=== PATIENT | male | born 1970 | race Caucasian/White ===

== ENCOUNTER 2016-11-28 10:47 | Emergency (ER) | payer OTHER ==
[~2016-11-28] VITALS: Ht 167.6 cm; Wt 86.4 kg
[~2016-11-28 10:47] MED LIST: NAPR500T PO
[2016-11-28 10:53] VITALS: BP 166/105; PULSE 105; RESP 18; O2SAT 96
[2016-11-28] MEDS ORDERED: TdaP Vaccine 0.5 mL Inj IM ONE (11:44)
--- NOTE | 2016-11-28 11:45 | ED.REPORT ---
HPI-Bite: Human/Animal Date of Service November 28, 2016 ED Provider: Chris Barron PA-C Gregg is a 46-year-old male, otherwise healthy, presenting with a chief complaint of a dog bite. 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 The dog bit his right hand when he grabbed the dog's leg. Patient denies pain, reduced range of motion or strength. Patient is right-handed. He is unsure of his tetanus status. Patient reports that the dog had a collar but no tags and he does not know the dog's vaccination status. Denies DM, HIV, immunosuppressive drugs. 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 Right hand: Shallow triangular tear just proximal to the fifth MCP joint. Small abrasions mid dorsal aspect of hand and fifth MCP. Full strength and range of motion at MCP, PIP and DIP joint. Brisk capillary refill intact distal. Sensation intact in all digits. Head: Atraumatic, normocephalic. Eyes: No scleral icterus or injection. No discharge. Vision grossly intact. ENT: Voice clear, hearing grossly intact. Respiratory: No respiratory distress, no increased work of breathing. Speaks in complete sentences. Skin: Warm and dry. Neurological: Grossly nonfocal. Psychological: alert and oriented. Speech appropriate, linear and logical. Behavior appropriate. Vital Signs Vital Signs (First) Date Time Temp Pulse Resp B/P Pulse Ox O2 Delivery O2 Flow Rate FiO2 11/28/16 10:53 37.1 105 18 166/105 96 Room Air Initial VS: Vital signs abnormal (elevated blood pressure, tachycardia) Re-Eval/Medical Decision Med Decision/Clinical Course Otherwise healthy 46-year-old believes police [employer] presents with chief complaint of a dog bite on the right hand. Sustained injury while trying to capture a dog [place] highway which appeared to be domestic. Was not behaving abnormally. Denies comorbidities. Small triangular tear proximal to right MCP joint and several abrasions on the dorsum of the hand. Soaked with saline and Betadine for approximately 20 minutes, wash with soap and water for several minutes. I do not believe triangular tear is significant enough to warrant suturing, and I do not want to use Dermabond out of concern for infection. Patient is comfortable with dressing the wound with antibiotic ointment and Band-Aid. Remaining wounds are extremely superficial and require no treatment. Dressed with ointment and bandage. Provided Tdap, prescription for Augmentin. Provided referral for [facility] primary care follow-up, emergency return precautions. Patient verbalizes understanding of and consented to plan. Mild tachycardia resolved at discharge , elevated blood pressure noted and referred for primary care follow-up. Discharge & Departure Impression: Primary Impression: Dog bite of right hand Encounter type: initial encounter Qualified Code: S61.451A - Open bite of right hand, initial encounter Additional Impression: Elevated blood pressure reading Disposition: Home Discharge Condition All VS Reviewed: Yes Condition: Stable Patient Instructions: Animal Bite (GEN) Additional Instructions: Evaluation in the emergency Department following a dog bite includes history and physical examination. This appears to be a minor wound, which we have cleaned and dressed. After consulting with the Department of Health we advised observing the animal for approximately 10 days to be sure he remains healthy. If the dog remains healthy there is no need for further treatment to prevent rabies. I will provide a prescription for 5 days of Augmentin to be taken twice a day for 5 days to prevent infection. The pain is best treated with 400 mg of ibuprofen (Advil, Motrin) every 6 hours , or 1000 mg of acetaminophen (Tylenol) every 6 hours. These drugs can be taken at the same time for more severe pain. Clean the wounds with soap and water twice a day and apply antibiotic ointment and dressings until they are well healed. I will provide a referral to Dr. Deepak Murphy, the [facility] occupational health provider. Please follow up with him in about a week to be sure this is progressing as expected. Be vigilant for signs of infection including increasing redness, pain, swelling or any appearance of pus, and return to the emergency department for these or any other new or worsening symptoms. I also note that your blood pressure was elevated during your visit to the emergency department. Please discuss this with your primary care provider. Referrals: Deepak Murphy MD EDSupervising Provider for APC: Dae Sheriff MD copies to: Deepak Murphy MD; Beto Woodson MD, Seth PA-C November 28, 2016 11:45
[2016-11-28] MEDS ORDERED: AGM875T PO (12:01)
[2016-11-28 12:10] VITALS: BP 147/100; PULSE 88; RESP 16; O2SAT 99
== END 2016-11-28 12:11 | disposition home or self-care (01) ==
LOC: SED 10:47
DX: S61.451A Open bite of right hand, initial encounter (principal); W54.0XXA Bitten by dog, initial encounter; Y93.89 Activity, other specified; Y92.411 Interstate highway as the place of occurrence of the external cause; Y99.0 Civilian activity done for income or pay; R03.0 Elevated blood-pressure reading, without diagnosis of hypertension; Z23 Encounter for immunization